=== PATIENT | male | born 1950 | race Caucasian/White ===

== ENCOUNTER → 2017-07-16 | Outpatient (CLI) | payer MEDICARE ==
[~2017-07-16] MED LIST: ACTOS30 MG PO; ASPIRIN 32325 MG/TAB PO; CENTRUM SILVER1 CTB PO; COLACE 100100 MG/CAP PO; CRESTOR 10MG10 MG PO; DIOVAN320 MG PO; GLUCOPHAGE500 MG/TAB PO; JANUVIA 100MG100 MG PO; NORCO 325 MG-51 TAB PO; PYRIDIUM200 M1 PO; VITAMIN E100 I3 PO; ZEBETA10 MG PO; ZYLOPRIM 300MG300 MG PO
== END ==
LOC: COL.RAD 07:50
DX: N18.2 Chronic kidney disease, stage 2 (mild) (principal)

== ENCOUNTER 2020-11-29 08:45 | Day surgery (SDC) | payer OTHER ==
[~2020-11-29] VITALS: Ht 172.7 cm; Wt 87.5 kg
[2020-11-29] MEDS ORDERED: B COMPLEX #11 TA1 PO (09:19)
[2020-11-29] MEDS ORDERED: MASON NATURAL1200 MG PO (09:19)
[2020-11-29] MEDS ORDERED: COREG 6.256.25 MG/TA PO (09:20)
[2020-11-29] MEDS ORDERED: VITAMIN C500 MG PO (09:21)
[2020-11-29 09:26] VITALS: BP 148/68; PULSE 58; TEMP 97.5
[2020-11-29 10:25] VITALS: BP 124/87; PULSE 65; TEMP 97.7
--- NOTE | 2020-11-29 10:25 | NUR ---
Patient arrives to [facility] via cart, accompanied by Endo RN Savita Waddell. He is alert and oriented. He ambulates to the chair in his room with steady gait and standby assist. PIV to TKO. Monitoring is applied -VSS on room air. He denies pain or nausea. He is offered and receives coffee and a muffin to eat. Will continue to monitor.
[2020-11-29 10:40] VITALS: BP 141/90; PULSE 59
--- NOTE | 2020-11-29 10:40 | NUR ---
VSS and WNL on room air. He denies pain or nausea. Tolerating PO well.
[2020-11-29 10:55] VITALS: PULSE 59
--- NOTE | 2020-11-29 11:07 | NUR ---
Patient has met discharge criteria. Discharge instructions are discussed. He denies any questions and verbalizes understanding. PIV is removed with catheter intact and hemostasis achieved. He changes to his clothing independently. He is escorted to the exit via wheelchair by RENO JACOBS. He is discharged to home to the care of his son, who drives him home in a private vehicle at 1107.
== END 2020-11-29 11:07 | disposition home or self-care (01) ==
LOC: SDCO 08:45
DX: Z12.11 Encounter for screening for malignant neoplasm of colon (principal); D12.5 Benign neoplasm of sigmoid colon; I25.10 Atherosclerotic heart disease of native coronary artery without angina pectoris; E11.9 Type 2 diabetes mellitus without complications; M10.9 Gout, unspecified; E78.5 Hyperlipidemia, unspecified; I10 Essential (primary) hypertension; G47.33 Obstructive sleep apnea (adult) (pediatric); J44.9 Chronic obstructive pulmonary disease, unspecified; M19.90 Unspecified osteoarthritis, unspecified site; I49.3 Ventricular premature depolarization; Z79.82 Long term (current) use of aspirin; Z79.84 Long term (current) use of oral hypoglycemic drugs; Z20.822 Contact with and (suspected) exposure to COVID-19; Z86.010 Personal history of colon polyps; Z79.899 Other long term (current) drug therapy; Z87.891 Personal history of nicotine dependence
CPT/HCPCS: J2704; J7120

== ENCOUNTER → 2021-04-14 | Outpatient (CLI) | payer MEDICARE ==
[~2021-04-14] MED LIST changes: +B COMPLEX #11 TA1 PO; +COREG 6.256.25 MG/TA PO; +MASON NATURAL1200 MG PO; +VITAMIN C500 MG PO
== END ==
LOC: COL.RAD 08:30
DX: C61 Malignant neoplasm of prostate (principal); M89.9 Disorder of bone, unspecified
CPT/HCPCS: A9503; Q9967